=== PATIENT | male | born 1960 | race African-American/Black ===

== ENCOUNTER 2017-07-25 05:20 | Day surgery (SDC) | payer BC, OTHER ==
[2017-07-16 16:09] VITALS: BMI 28.5
[2017-07-25] MEDS ORDERED: LIDOCAINE HCL 1%, 10 MG/ML (20ML VIAL) ONE (09:13)
[2017-07-25] MEDS ORDERED: BUPIVACAINE HCL/PF 0.5% (5MG/ML) 10 ML VIAL ONE ×2 (09:13→09:30)
[2017-07-25] MEDS ORDERED: LIDOCAINE 1%/EPI 1:100000 (20 ML MULTI DOSE VIAL) ONE (09:30)
--- NOTE | 2017-07-25 09:39 | HP ---
[facility]ellite [facility] - Chief Complaint Chief Complaint: LEFT KNEE PAIN History Source: Patient - Past Medical History Allergies/Adverse Reactions: Allergies Allergy/AdvReac Type Severity Reaction Status Date / Time No Known Drug Allergies Allergy Verified 07/25/17 08:35 - Current Medications Current Medications: Home Medications Medication Instructions Recorded Ibuprofen [Motrin -] 400 mg PO PRN PRN 07/16/17 Multivitamin [One Daily] 1 each PO DAILY 07/16/17 Satellite Physical Exam - Physical Examination Vital Signs: Vital Signs Period Temp Pulse Resp BP Sys/Degroot Pulse Ox Last 24 Hr 97.7 F 66 20 140/91 97 Extremities: Other (+ LEFT KNEE JOINT LINE TENDERNESS) Satellite Impression/Plan - Impression/Plan Impression: INTERNAL DERANGEMENT LEFT KNEE Operative Procedure: ARTHROSCOPY LEFT KNEE Date to be Performed: 07/25/17
[2017-07-25] MEDS ORDERED: PROPOFOL 20 ML ONE (09:57)
[2017-07-25] MEDS ORDERED: MIDAZOLAM HCL 2 MG/2 ML SINGLE DOSE VIAL ONE (09:57)
[2017-07-25] MEDS ORDERED: BUPIVACAINE HCL/PF 0.5% (5MG/ML) 10 ML VIAL IJ ONE (10:16)
[2017-07-25] MEDS ORDERED: LIDOCAINE 1%/EPI 1:100000 (20 ML MULTI DOSE VIAL) IJ ONE (10:16)
[2017-07-25] MEDS ORDERED: DEXAMETHASONE SOD PHOSPHATE 4 MG/1 ML VIAL ONE (10:20)
[2017-07-25] MEDS ORDERED: KETOROLAC TROMETHAMINE 30 MG/1 ML VIAL ONE (10:47)
--- NOTE | 2017-07-25 11:08 | OP ---
Operative Note - Note: Operative Date: 07/25/17 Pre-Operative Diagnosis: left medial meniscus tear Operation: arthroscopy left knee with partial MM Post-Operative Diagnosis: Same as Pre-op Surgeon: Gene Guerra Anesthesia: General Operative Report Dictated: Yes
[2017-07-25] MEDS ORDERED: oxyCODONE HCL 5 MG TABLET PO PRN (11:09)
[2017-07-25] MEDS ORDERED: ONDANSETRON 4 MG/2 ML VIAL IVPUSH PRN (11:09)
[2017-07-25] MEDS ORDERED: LACTATED RINGERS SOLUTION 1,000 ML IV SCH (11:15)
--- NOTE | 2017-07-25 12:07 | OP ---
DATE OF OPERATION: 07/25/2017 PREOPERATIVE DIAGNOSIS: Left medial meniscus tear. POSTOPERATIVE DIAGNOSIS: Left medial meniscus tear. PROCEDURE: Arthroscopy, left knee, with partial medial meniscectomy. SURGICAL ATTENDING: Gene Guerra M.D. PULP BLEACHER: No front office assistant. ANESTHESIA: General with LMA. CLOSURE: 4-0 nylon. COMPLICATIONS: None. CONDITION: To recovery room in stable condition. DESCRIPTION OF OPERATIVE PROCEDURE: Patient was taken to the operating room on July 25, 2017. LMA anesthesia was administered by the anesthesiologist. The left lower extremity was prepped and draped in the usual sterile fashion. The medial and lateral infrapatellar portal sites were infiltrated with 1% Xylocaine with epinephrine. Both portals were then made with a 15 blade followed by a blunt trocar. The trocar was placed in the lateral infrapatellar portal and up into the suprapatellar pouch. The knee was inflated with a cocktail of 10 mL of 1% Xylocaine, 10 mL of 0.5% Marcaine, and 20 mL of arthroscopic saline. After the anesthetic was given time to work, we proceeded doing the arthroscopy. The medial and lateral gutters were visualized to be clean. With valgus stress on the knee, the medial compartment was entered. The medial meniscus was found to have a complex tear of the posterior horn. This was debrided back to smooth, stable meniscal tissue using a meniscal biter and arthroscopic shaver. An adjuvant direct medial portal was used in order to facilitate gaining access to the posterior aspect of the meniscus. This was done by a spinal needle, followed by a 15 blade, and a blunt trocar. The medial femoral condyle was run and found to be intact. At 90 degrees, the ACL was visualized, probed, and found to be intact. In the figure-4 position, the lateral compartment was entered. The lateral meniscus was visualized, probed, and found to be intact. The lateral femoral condyle was run and found to be intact, as was the lateral tibial plateau. The undersurface of the patella and trochlea were visualized to be intact, as well. The knee was irrigated out with copious amounts of irrigation. The portals were closed with 4-0 nylon. Prior to closure, 20 mL of 0.5% Marcaine was infused into the knee through the portal for postoperative analgesia. A sterile pressure dressing was . Patient awakened from anesthesia and transferred to recovery in stable condition. No complications. Wagner [id number]
[2017-07-25 12:10] VITALS: TEMP 97.8
[2017-07-25 13:48] VITALS: BP 133/85; PULSE 80
--- NOTE | 2017-07-26 12:03 | PATH ---
Surgical Pathology Report Patient Name: GENE DOWNEY [facility]. Rec. #: [id number] /Age/Gender: 1960 (Age: 57) / M Account: [id number] Location: [facility] SURGICAL Taken: 07/25/2017 Received: 07/25/2017 Reported: 07/26/2017 Physicians: Gene Guerra M.D. Specimen(s) Received SHAVINGS Clinical History Medial meniscus tear Final Diagnosis KNEE SHAVINGS, LEFT, ARTHROSCOPY: BENIGN CARTILAGE, FIBROADIPOSE TISSUE, AND SYNOVIUM. Electronically Signed Porsha Murray M.D. Gross Description Received in formalin, labeled "left knee shavings," is a 4.5 x 3.7 x 0.5 cm. aggregate of stewart-yellow soft tissue fragments. A sales representative womens health portion is submitted in one cassette. /07/25/201707/25/2017
== END 2017-07-25 13:55 | disposition home or self-care (01) ==
LOC: JASU-SURG 05:20
PROVIDERS: ATTEND Orthopaedic Surgery
PROC: 0SBD4ZZ Excision of Left Knee Joint, Percutaneous Endoscopic Approach (ICD-10-PCS; principal; 2017-07-25 09:30)
DX: S83.242A Other tear of medial meniscus, current injury, left knee, initial encounter (principal); X58.XXXA Exposure to other specified factors, initial encounter; Y93.9 Activity, unspecified; Y92.9 Unspecified place or not applicable; Y99.9 Unspecified external cause status
CPT/HCPCS: 88304-TC; 94760; 97116-GP